=== PATIENT | female | born 1940 | race Caucasian/White ===

== ENCOUNTER 2019-05-13 20:39 | Inpatient (IN) | payer BC, MEDICARE ==
[~2019-05-13] VITALS: Ht 154.9 cm; Wt 52.2 kg
[2019-05-13 20:00] VITALS: BP 121/39
[2019-05-13 20:39] VITALS: BP 121/49
[2019-05-13] MEDS ORDERED: NON FORMULARY PATIENT HOME MED XX SCH (23:00)
[2019-05-13] MEDS ORDERED: VANCOMYCIN HCL 1000 MG/20 ML ORAL PO SCH (23:00)
[2019-05-14] MEDS: VANCOMYCIN HCL 1 GM/VIAL PO SCH ×3 (01:45→17:17)
[2019-05-14] MEDS ORDERED: PANTOPRAZOLE 40MG DR TABLET PO SCH (07:00)
[2019-05-14] MEDS ORDERED: MIDODRINE HCL 5MG TABLET PO SCH (07:00)
[2019-05-14 08:00] VITALS: BP 135/33
[2019-05-14] MEDS: FOLIC ACID/VITAMIN B COMP W-C TABLET PO SCH (08:49)
[2019-05-14] MEDS: LABETALOL HCL 100MG TABLET PO SCH ×2 (08:49→21:00)
[2019-05-14] MEDS: HYDROCORTISONE 2.5% CREAM 20GM TOP SCH ×2 (08:49→17:22)
[2019-05-14] MEDS: LEVETIRACETAM 250MG TABLET PO SCH (08:49)
[2019-05-14] MEDS: LACTOBACILLUS GG CAPSULE PO SCH (08:49)
[2019-05-14] MEDS: CALCIUM ACETATE 667MG CAPSULE PO SCH ×3 (08:49→17:16)
[2019-05-14] MEDS: MECLIZINE 25MG TABLET PO PRN (08:50)
[2019-05-14] MEDS ORDERED: CALCIUM CARBONATE 1,250 MG/5 ML UDC PO SCH (09:00)
[2019-05-14] MEDS ORDERED: ZINC SULFATE 220 MG ( 50 ) CAPSULE PO SCH (09:00)
[2019-05-14 12:52] LABS: BASOPHILS % 0.9 % (0.0-2.0); EOSINOPHILS % 11.5 % (0.0-5.0); HEMATOCRIT. 35.6 % (36.0-48.0); HEMOGLOBIN. 11.4 g/dL (12.0-16.0); LYMPHOCYTES % 17.4 % (20.0-50.0); MEAN CORPUSCULAR HEMOGLOBIN 30.1 pg (28.0-32.0); MEAN CORPUSCULAR VOLUME 93.8 fL (81.0-99.0); MEAN PLATELET VOLUME 8.3 fl (7.4-10.4); MONOCYTES % 9.3 % (2.0-8.0); NEUTROPHILS % 60.9 % (40.0-76.0); PLATELET 98 x1000/uL (130-400); RED BLOOD CELL COUNT 3.79 mill/uL (4.2-5.4); RED CELL DISTRIBUTION WIDTH 22.1 % (11.6-14.6)
[2019-05-14 13:08] LABS: CHLORIDE 107 mEq/L (98-107)
[2019-05-14 13:19] LABS: PHOSPHORUS 3.2 mg/dL (2.5-4.9)
[2019-05-14 15:07] LABS: PLATELET ESTIMATE DECREASED
[2019-05-14] MEDS ORDERED: HYDROCODONE/ACETAMINOPHEN 5/325MG TABLET PO PRN (16:00)
[2019-05-14] MEDS: NYSTATIN POWDER 15GM TOP SCH (17:00)
[2019-05-14 20:00] VITALS: BP 118/34
[2019-05-14] MEDS ORDERED: AMLODIPINE 2.5MG TABLET PO SCH (21:00)
[2019-05-14] MEDS ORDERED: EPOETIN ALFA 10000UNITS/ML VIAL SUBCUT SCH (21:00)
[2019-05-14 23:00] VITALS: BP 106/68
[2019-05-15] MEDS: ATORVASTATIN CALCIUM 10MG TABLET PO SCH ×2 (00:31→21:56)
[2019-05-15] MEDS: VANCOMYCIN HCL 1 GM/VIAL PO SCH ×4 (00:31→17:02)
[2019-05-15] MEDS: FAMOTIDINE 20MG TABLET PO SCH ×2 (00:31→21:56)
[2019-05-15] MEDS: LEVETIRACETAM 250MG TABLET PO SCH ×3 (00:32→21:56)
[2019-05-15 08:00] VITALS: BP 114/32
[2019-05-15] MEDS: LACTOBACILLUS GG CAPSULE PO SCH (08:32)
[2019-05-15] MEDS: FOLIC ACID/VITAMIN B COMP W-C TABLET PO SCH (08:32)
[2019-05-15] MEDS: NYSTATIN POWDER 15GM TOP SCH ×3 (08:33→17:03)
[2019-05-15] MEDS: HYDROCORTISONE 2.5% CREAM 20GM TOP SCH (08:33)
[2019-05-15] MEDS: VANCOMYCIN HCL 1000 MG/20 ML ORAL PO SCH (17:03)
[2019-05-15 20:00] VITALS: BP 135/48
[2019-05-15] MEDS ORDERED: IOHEXOL-350 100 ML BOTTLE ONE (23:32)
[2019-05-16] MEDS: VANCOMYCIN HCL 1000 MG/20 ML ORAL PO SCH ×3 (00:21→14:12)
[2019-05-16 06:38] LABS: BASOPHILS % 1.3 % (0.0-2.0); EOSINOPHILS % 17.5 % (0.0-5.0); HEMATOCRIT. 35.7 % (36.0-48.0); HEMOGLOBIN. 11.5 g/dL (12.0-16.0); LYMPHOCYTES % 20.8 % (20.0-50.0); MEAN CORPUSCULAR HEMOGLOBIN 30.5 pg (28.0-32.0); MEAN PLATELET VOLUME 8.6 fl (7.4-10.4); MONOCYTES % 12.6 % (2.0-8.0); NEUTROPHILS % 47.8 % (40.0-76.0); PLATELET 108 x1000/uL (130-400); RED BLOOD CELL COUNT 3.76 mill/uL (4.2-5.4); RED CELL DISTRIBUTION WIDTH 21.5 % (11.6-14.6)
[2019-05-16 06:57] LABS: CHLORIDE 109 mEq/L (98-107)
[2019-05-16 07:15] LABS: FERRITIN 213 ng/mL (10-291)
[2019-05-16 07:17] LABS: FOLIC ACID (FOLATE) SERUM >20 ng/mL ng/mL (>5.38)
[2019-05-16 07:24] LABS: CREATINE KINASE 29 IU/L (26-192)
[2019-05-16 07:26] LABS: PHOSPHORUS 2.8 mg/dL (2.5-4.9); TOTAL IRON BINDING CAPACITY 265 ug/dL (250-450)
[2019-05-16 07:29] LABS: VITAMIN B12 SERUM 1803 pg/mL (211-911)
[2019-05-16 08:13] VITALS: BP 140/52
[2019-05-16] MEDS: FOLIC ACID/VITAMIN B COMP W-C TABLET PO SCH (11:20)
[2019-05-16] MEDS: LACTOBACILLUS GG CAPSULE PO SCH (11:20)
[2019-05-16] MEDS: LEVOTHYROXINE SODIUM 25MCG TABLET PO SCH (11:20)
[2019-05-16] MEDS: POLYETHYLENE GLYCOL 3350 (17GM) 1 DOSE PACK PO SCH (11:20)
[2019-05-16] MEDS: LEVETIRACETAM 250MG TABLET PO SCH ×2 (11:20→20:37)
[2019-05-16] MEDS: NYSTATIN POWDER 15GM TOP SCH ×3 (11:29→17:40)
[2019-05-16 20:00] VITALS: BP 122/33
[2019-05-16] MEDS: ATORVASTATIN CALCIUM 10MG TABLET PO SCH (20:37)
[2019-05-16] MEDS: FAMOTIDINE 20MG TABLET PO SCH (20:38)
[2019-05-16] MEDS ORDERED: LABETALOL HCL 100MG TABLET PO SCH (21:00)
[2019-05-16] MEDS ORDERED: AMLODIPINE 2.5MG TABLET PO SCH (21:00)
[2019-05-17] MEDS: VANCOMYCIN HCL 1000 MG/20 ML ORAL PO SCH ×4 (00:17→22:11)
[2019-05-17 01:27] VITALS: BP 154/55
[2019-05-17] MEDS: LEVOTHYROXINE SODIUM 25MCG TABLET PO SCH (06:03)
[2019-05-17 08:04] VITALS: BP 121/58
[2019-05-17] MEDS: LACTOBACILLUS GG CAPSULE PO SCH (08:56)
[2019-05-17] MEDS: LEVETIRACETAM 250MG TABLET PO SCH ×2 (08:56→21:35)
[2019-05-17] MEDS: POLYETHYLENE GLYCOL 3350 (17GM) 1 DOSE PACK PO SCH (08:56)
[2019-05-17] MEDS: CARVEDILOL 3.125 MG TABLET PO SCH ×2 (08:57→21:35)
[2019-05-17] MEDS: NYSTATIN POWDER 15GM TOP SCH ×3 (08:57→16:14)
[2019-05-17] MEDS: FOLIC ACID/VITAMIN B COMP W-C TABLET PO SCH (08:57)
[2019-05-17 20:00] VITALS: BP 145/43
[2019-05-17] MEDS: FAMOTIDINE 20MG TABLET PO SCH (21:35)
[2019-05-17] MEDS: ATORVASTATIN CALCIUM 10MG TABLET PO SCH (21:35)
[2019-05-18] MEDS: LEVOTHYROXINE SODIUM 25MCG TABLET PO SCH (06:35)
[2019-05-18] MEDS: VANCOMYCIN HCL 1000 MG/20 ML ORAL PO SCH ×2 (06:35→14:24)
[2019-05-18] MEDS: NYSTATIN POWDER 15GM TOP SCH ×3 (09:00→17:45)
[2019-05-18] MEDS: LACTOBACILLUS GG CAPSULE PO SCH (10:01)
[2019-05-18] MEDS: CARVEDILOL 3.125 MG TABLET PO SCH ×2 (10:01→21:00)
[2019-05-18] MEDS: FOLIC ACID/VITAMIN B COMP W-C TABLET PO SCH (10:02)
[2019-05-18] MEDS: LEVETIRACETAM 250MG TABLET PO SCH (10:02)
[2019-05-18 10:36] LABS: PHOSPHORUS 2.9 mg/dL (2.5-4.9)
[2019-05-18 13:25] LABS: HEMATOCRIT. 36.7 % (36.0-48.0); HEMOGLOBIN. 11.5 g/dL (12.0-16.0); MEAN CORPUSCULAR HEMOGLOBIN 30.4 pg (28.0-32.0); MEAN CORPUSCULAR VOLUME 96.5 fL (81.0-99.0); MEAN PLATELET VOLUME 8.9 fl (7.4-10.4); PLATELET 107 x1000/uL (130-400); RED CELL DISTRIBUTION WIDTH 22.6 % (11.6-14.6)
[2019-05-18 14:34] LABS: PLATELET ESTIMATE DECREASED
[2019-05-18 20:00] VITALS: BP 160/44
[2019-05-19] MEDS: ATORVASTATIN CALCIUM 10MG TABLET PO SCH ×2 (01:08→22:30)
[2019-05-19] MEDS: FAMOTIDINE 20MG TABLET PO SCH ×2 (01:08→22:28)
[2019-05-19] MEDS: LEVETIRACETAM 250MG TABLET PO SCH ×3 (01:08→22:29)
[2019-05-19] MEDS: VANCOMYCIN HCL 1000 MG/20 ML ORAL PO SCH ×4 (01:10→22:28)
[2019-05-19] MEDS: LEVOTHYROXINE SODIUM 25MCG TABLET PO SCH (06:10)
[2019-05-19 08:00] VITALS: BP 142/50
[2019-05-19] MEDS: NYSTATIN POWDER 15GM TOP SCH ×3 (09:22→16:44)
[2019-05-19] MEDS: FOLIC ACID/VITAMIN B COMP W-C TABLET PO SCH (09:22)
[2019-05-19] MEDS: CARVEDILOL 3.125 MG TABLET PO SCH ×2 (09:22→22:29)
[2019-05-19] MEDS: LACTOBACILLUS GG CAPSULE PO SCH (09:22)
[2019-05-19 20:00] VITALS: BP 145/37
[2019-05-20 04:09] LABS: 25-HYDROXY VITAMIN D3 19 ng/mL (.)
[2019-05-20] MEDS: VANCOMYCIN HCL 1000 MG/20 ML ORAL PO SCH ×3 (06:04→22:01)
[2019-05-20] MEDS: LEVOTHYROXINE SODIUM 25MCG TABLET PO SCH (06:04)
[2019-05-20 07:39] LABS: BASOPHILS % 0.8 % (0.0-2.0); EOSINOPHILS % 14.7 % (0.0-5.0); HEMATOCRIT. 31.3 % (36.0-48.0); HEMOGLOBIN. 10.2 g/dL (12.0-16.0); LYMPHOCYTES % 24.4 % (20.0-50.0); MEAN CORPUSCULAR HEMOGLOBIN 30.3 pg (28.0-32.0); MEAN CORPUSCULAR VOLUME 92.5 fL (81.0-99.0); MEAN PLATELET VOLUME 8.6 fl (7.4-10.4); MONOCYTES % 8.8 % (2.0-8.0); NEUTROPHILS % 51.3 % (40.0-76.0); PLATELET 104 x1000/uL (130-400); RED BLOOD CELL COUNT 3.39 mill/uL (4.2-5.4); RED CELL DISTRIBUTION WIDTH 20.9 % (11.6-14.6)
[2019-05-20 07:53] LABS: PHOSPHORUS 2.6 mg/dL (2.5-4.9)
[2019-05-20 08:15] VITALS: BP 141/43
[2019-05-20] MEDS: FOLIC ACID/VITAMIN B COMP W-C TABLET PO SCH (08:47)
[2019-05-20] MEDS: LEVETIRACETAM 250MG TABLET PO SCH ×2 (08:47→21:55)
[2019-05-20] MEDS: LACTOBACILLUS GG CAPSULE PO SCH (08:47)
[2019-05-20] MEDS: CARVEDILOL 6.25 MG TABLET PO SCH ×2 (09:08→21:56)
[2019-05-20] MEDS: NYSTATIN POWDER 15GM TOP SCH ×3 (09:09→16:06)
[2019-05-20] MEDS ORDERED: IRON SUCROSE COMPLEX 200 MG in SODIUM CHLORIDE 0.9% 100 ML IV SCH (10:00)
[2019-05-20] MEDS: ACETAMINOPHEN 325MG TABLET PO PRN (10:08)
[2019-05-20 20:00] VITALS: BP 130/30
[2019-05-20] MEDS: IRON SUCROSE COMPLEX 200 MG in SODIUM CHLORIDE 0.9% 100 ML IV SCH (21:55)
[2019-05-20] MEDS: ATORVASTATIN CALCIUM 10MG TABLET PO SCH (21:56)
[2019-05-20] MEDS: FAMOTIDINE 20MG TABLET PO SCH (22:01)
[2019-05-21] MEDS: LEVOTHYROXINE SODIUM 25MCG TABLET PO SCH (06:21)
[2019-05-21 06:46] LABS: BASOPHILS % 0.5 % (0.0-2.0); EOSINOPHILS % 11.3 % (0.0-5.0); HEMATOCRIT. 34.7 % (36.0-48.0); HEMOGLOBIN. 11.2 g/dL (12.0-16.0); LYMPHOCYTES % 15.2 % (20.0-50.0); MEAN CORPUSCULAR HEMOGLOBIN 30.1 pg (28.0-32.0); MEAN CORPUSCULAR VOLUME 93.6 fL (81.0-99.0); MEAN PLATELET VOLUME 8.6 fl (7.4-10.4); MONOCYTES % 6.9 % (2.0-8.0); NEUTROPHILS % 66.1 % (40.0-76.0); PLATELET 120 x1000/uL (130-400); RED BLOOD CELL COUNT 3.71 mill/uL (4.2-5.4); RED CELL DISTRIBUTION WIDTH 21.5 % (11.6-14.6)
[2019-05-21 07:35] LABS: CHLORIDE 104 mEq/L (98-107)
[2019-05-21 07:49] LABS: PHOSPHORUS 3.3 mg/dL (2.5-4.9)
[2019-05-21 08:00] VITALS: BP 159/43
[2019-05-21] MEDS: ERGOCALCIFEROL 50000UNITS CAPSULE PO SCH (09:54)
[2019-05-21] MEDS: FOLIC ACID/VITAMIN B COMP W-C TABLET PO SCH (09:54)
[2019-05-21] MEDS: CARVEDILOL 6.25 MG TABLET PO SCH ×2 (09:54→21:00)
[2019-05-21] MEDS: LACTOBACILLUS GG CAPSULE PO SCH (09:55)
[2019-05-21] MEDS: LEVETIRACETAM 250MG TABLET PO SCH ×2 (09:55→22:30)
[2019-05-21] MEDS: NYSTATIN POWDER 15GM TOP SCH ×3 (09:55→17:04)
[2019-05-21] MEDS: VANCOMYCIN HCL 1000 MG/20 ML ORAL PO SCH ×2 (09:58→22:31)
[2019-05-21 20:00] VITALS: BP 135/32
[2019-05-21] MEDS: IRON SUCROSE COMPLEX 200 MG in SODIUM CHLORIDE 0.9% 100 ML IV SCH (22:30)
[2019-05-21] MEDS: ATORVASTATIN CALCIUM 10MG TABLET PO SCH (22:30)
[2019-05-21] MEDS: FAMOTIDINE 20MG TABLET PO SCH (22:30)
[2019-05-22] VITALS: BP 120/60
[2019-05-22] MEDS: LEVOTHYROXINE SODIUM 25MCG TABLET PO SCH (06:05)
[2019-05-22 07:51] VITALS: BP 106/37
[2019-05-22] MEDS: VANCOMYCIN HCL 1000 MG/20 ML ORAL PO SCH ×2 (08:44→22:04)
[2019-05-22] MEDS: NYSTATIN POWDER 15GM TOP SCH ×3 (08:44→22:05)
[2019-05-22] MEDS: LACTOBACILLUS GG CAPSULE PO SCH (08:44)
[2019-05-22] MEDS: FOLIC ACID/VITAMIN B COMP W-C TABLET PO SCH (08:44)
[2019-05-22] MEDS: LEVETIRACETAM 250MG TABLET PO SCH ×2 (08:44→22:03)
[2019-05-22] MEDS: CARVEDILOL 3.125 MG TABLET PO SCH ×2 (08:44→22:03)
[2019-05-22 20:00] VITALS: BP 127/64
[2019-05-22] MEDS: FAMOTIDINE 20MG TABLET PO SCH (22:03)
[2019-05-22] MEDS: ATORVASTATIN CALCIUM 10MG TABLET PO SCH (22:04)
[2019-05-22] MEDS: IRON SUCROSE COMPLEX 200 MG in SODIUM CHLORIDE 0.9% 100 ML IV SCH (22:05)
[2019-05-23] MEDS: LEVOTHYROXINE SODIUM 25MCG TABLET PO SCH (06:49)
[2019-05-23 07:11] LABS: BASOPHILS % 0.9 % (0.0-2.0); EOSINOPHILS % 9.5 % (0.0-5.0); HEMATOCRIT. 35.8 % (36.0-48.0); HEMOGLOBIN. 11.4 g/dL (12.0-16.0); LYMPHOCYTES % 24.2 % (20.0-50.0); MEAN CORPUSCULAR HEMOGLOBIN 30.2 pg (28.0-32.0); MEAN CORPUSCULAR VOLUME 94.9 fL (81.0-99.0); MEAN PLATELET VOLUME 8.6 fl (7.4-10.4); MONOCYTES % 9.3 % (2.0-8.0); NEUTROPHILS % 56.1 % (40.0-76.0); PLATELET 122 x1000/uL (130-400); RED BLOOD CELL COUNT 3.78 mill/uL (4.2-5.4); RED CELL DISTRIBUTION WIDTH 21.7 % (11.6-14.6)
[2019-05-23 07:51] LABS: PHOSPHORUS 3.9 mg/dL (2.5-4.9)
[2019-05-23 08:00] VITALS: BP 139/56
[2019-05-23] MEDS: FOLIC ACID/VITAMIN B COMP W-C TABLET PO SCH (08:33)
[2019-05-23] MEDS: CARVEDILOL 3.125 MG TABLET PO SCH ×2 (08:33→22:22)
[2019-05-23] MEDS: LACTOBACILLUS GG CAPSULE PO SCH (08:33)
[2019-05-23] MEDS: VANCOMYCIN HCL 1000 MG/20 ML ORAL PO SCH ×2 (08:33→22:20)
[2019-05-23] MEDS: LEVETIRACETAM 250MG TABLET PO SCH ×2 (08:33→22:16)
[2019-05-23] MEDS: NYSTATIN POWDER 15GM TOP SCH ×3 (08:45→17:22)
[2019-05-23] MEDS ORDERED: LACTOBACILLUS GG CAPSULE PO SCH (09:00)
[2019-05-23] MEDS ORDERED: LOPERAMIDE HCL 2MG CAPSULE PO PRN (09:15)
[2019-05-23] MEDS ORDERED: SODIUM BICARBONATE 4% (2.4MEQ) 5ML VIAL IV ONE (14:26)
[2019-05-23] MEDS ORDERED: LIDOCAINE HCL 1% 20ML VIAL (Pyxis) INJ ONE (14:26)
[2019-05-23 20:00] VITALS: BP_SYST 127; BP_SYST 131; BP_DIAS 24; BP_DIAS 43
[2019-05-23] MEDS: ATORVASTATIN CALCIUM 10MG TABLET PO SCH (22:16)
[2019-05-23] MEDS: MIRTAZAPINE 15MG TABLET PO SCH (22:17)
[2019-05-23] MEDS: FAMOTIDINE 20MG TABLET PO SCH (22:22)
[2019-05-24] MEDS: LEVOTHYROXINE SODIUM 25MCG TABLET PO SCH (07:05)
[2019-05-24 08:00] VITALS: BP 139/58
[2019-05-24] MEDS: NYSTATIN POWDER 15GM TOP SCH ×3 (10:11→17:50)
[2019-05-24] MEDS: LEVETIRACETAM 250MG TABLET PO SCH ×2 (10:14→21:42)
[2019-05-24] MEDS: FOLIC ACID/VITAMIN B COMP W-C TABLET PO SCH (10:15)
[2019-05-24] MEDS: CARVEDILOL 3.125 MG TABLET PO SCH ×2 (10:15→21:42)
[2019-05-24] MEDS: LACTOBACILLUS GG CAPSULE PO SCH (10:15)
[2019-05-24] MEDS: VANCOMYCIN HCL 1000 MG/20 ML ORAL PO SCH ×2 (10:15→21:42)
[2019-05-24 20:00] VITALS: BP 175/43
[2019-05-24] MEDS: ATORVASTATIN CALCIUM 10MG TABLET PO SCH (21:43)
[2019-05-24] MEDS: FAMOTIDINE 20MG TABLET PO SCH (21:43)
[2019-05-24] MEDS: MIRTAZAPINE 15MG TABLET PO SCH (21:43)
[2019-05-25] MEDS: LEVOTHYROXINE SODIUM 25MCG TABLET PO SCH (06:48)
[2019-05-25 07:50] LABS: BASOPHILS % 1.2 % (0.0-2.0); HEMATOCRIT. 35.6 % (36.0-48.0); HEMOGLOBIN. 11.5 g/dL (12.0-16.0); LYMPHOCYTES % 18.7 % (20.0-50.0); MEAN CORPUSCULAR HEMOGLOBIN 30.5 pg (28.0-32.0); MEAN CORPUSCULAR VOLUME 94.6 fL (81.0-99.0); MEAN PLATELET VOLUME 8.7 fl (7.4-10.4); MONOCYTES % 10.7 % (2.0-8.0); NEUTROPHILS % 56.4 % (40.0-76.0); PLATELET 112 x1000/uL (130-400); RED BLOOD CELL COUNT 3.76 mill/uL (4.2-5.4); RED CELL DISTRIBUTION WIDTH 21.6 % (11.6-14.6)
[2019-05-25 08:00] VITALS: BP 158/48
[2019-05-25] MEDS: FOLIC ACID/VITAMIN B COMP W-C TABLET PO SCH (09:31)
[2019-05-25] MEDS: CARVEDILOL 3.125 MG TABLET PO SCH ×2 (09:31→21:00)
[2019-05-25] MEDS: LEVETIRACETAM 250MG TABLET PO SCH (09:31)
[2019-05-25] MEDS: LACTOBACILLUS GG CAPSULE PO SCH (09:31)
[2019-05-25] MEDS: NYSTATIN POWDER 15GM TOP SCH ×3 (09:32→16:24)
[2019-05-25] MEDS: VANCOMYCIN HCL 1000 MG/20 ML ORAL PO SCH (09:35)
[2019-05-25 20:00] VITALS: BP 122/42
[2019-05-26] MEDS: ATORVASTATIN CALCIUM 10MG TABLET PO SCH ×2 (00:10→21:13)
[2019-05-26] MEDS: VANCOMYCIN HCL 1000 MG/20 ML ORAL PO SCH ×2 (00:10→09:28)
[2019-05-26] MEDS: MIRTAZAPINE 15MG TABLET PO SCH ×2 (00:10→21:13)
[2019-05-26] MEDS: LEVETIRACETAM 250MG TABLET PO SCH ×3 (00:10→21:13)
[2019-05-26] MEDS: FAMOTIDINE 20MG TABLET PO SCH ×2 (00:10→21:13)
[2019-05-26] MEDS: LEVOTHYROXINE SODIUM 25MCG TABLET PO SCH (06:19)
[2019-05-26 07:50] VITALS: BP 128/46
[2019-05-26 08:30] LABS: BASOPHILS % 1.2 % (0.0-2.0); EOSINOPHILS % 10.6 % (0.0-5.0); HEMATOCRIT. 35.3 % (36.0-48.0); HEMOGLOBIN. 11.6 g/dL (12.0-16.0); LYMPHOCYTES % 25.4 % (20.0-50.0); MEAN CORPUSCULAR HEMOGLOBIN 30.5 pg (28.0-32.0); MEAN PLATELET VOLUME 8.5 fl (7.4-10.4); MONOCYTES % 9.5 % (2.0-8.0); NEUTROPHILS % 53.3 % (40.0-76.0); PLATELET 126 x1000/uL (130-400); RED CELL DISTRIBUTION WIDTH 21.2 % (11.6-14.6)
[2019-05-26 09:13] LABS: PHOSPHORUS 2.3 mg/dL (2.5-4.9)
[2019-05-26] MEDS: CARVEDILOL 3.125 MG TABLET PO SCH ×2 (09:24→21:13)
[2019-05-26] MEDS: FOLIC ACID/VITAMIN B COMP W-C TABLET PO SCH (09:24)
[2019-05-26] MEDS: NYSTATIN POWDER 15GM TOP SCH ×3 (09:24→16:01)
[2019-05-26] MEDS: LACTOBACILLUS GG CAPSULE PO SCH (09:24)
[2019-05-26] MEDS: POTASSIUM-SODIUM PHOSPHATE POWDER PACKET PO SCH (16:01)
[2019-05-26 20:00] VITALS: BP 144/48
[2019-05-26 22:00] VITALS: BP 144/48
[2019-05-27] VITALS: BP 144/48
[2019-05-27] MEDS: LEVOTHYROXINE SODIUM 25MCG TABLET PO SCH (06:28)
[2019-05-27 07:40] LABS: BASOPHILS % 1.1 % (0.0-2.0); EOSINOPHILS % 10.9 % (0.0-5.0); HEMATOCRIT. 29.7 % (36.0-48.0); HEMOGLOBIN. 9.5 g/dL (12.0-16.0); LYMPHOCYTES % 25.8 % (20.0-50.0); MEAN CORPUSCULAR HEMOGLOBIN 30.3 pg (28.0-32.0); MEAN CORPUSCULAR VOLUME 94.5 fL (81.0-99.0); MEAN PLATELET VOLUME 8.5 fl (7.4-10.4); MONOCYTES % 12.3 % (2.0-8.0); NEUTROPHILS % 49.9 % (40.0-76.0); PLATELET 123 x1000/uL (130-400); RED BLOOD CELL COUNT 3.14 mill/uL (4.2-5.4); RED CELL DISTRIBUTION WIDTH 21.9 % (11.6-14.6)
[2019-05-27] MEDS: LEVETIRACETAM 250MG TABLET PO SCH ×2 (08:05→21:01)
[2019-05-27] MEDS: LACTOBACILLUS GG CAPSULE PO SCH (08:05)
[2019-05-27] MEDS: NYSTATIN POWDER 15GM TOP SCH ×3 (08:05→16:21)
[2019-05-27] MEDS: FOLIC ACID/VITAMIN B COMP W-C TABLET PO SCH (08:05)
[2019-05-27] MEDS: VANCOMYCIN HCL 1000 MG/20 ML ORAL PO SCH (08:06)
[2019-05-27] MEDS: CARVEDILOL 3.125 MG TABLET PO SCH ×2 (08:06→21:02)
[2019-05-27 08:12] VITALS: BP 143/44
[2019-05-27 08:25] LABS: PHOSPHORUS 3.7 mg/dL (2.5-4.9)
[2019-05-27] MEDS: POTASSIUM-SODIUM PHOSPHATE POWDER PACKET PO SCH ×2 (08:42→16:24)
[2019-05-27 20:00] VITALS: BP 157/73
[2019-05-27] MEDS: FAMOTIDINE 20MG TABLET PO SCH (21:01)
[2019-05-27] MEDS: MIRTAZAPINE 15MG TABLET PO SCH (21:02)
[2019-05-27] MEDS: ATORVASTATIN CALCIUM 10MG TABLET PO SCH (21:02)
[2019-05-27] MEDS: ACETAMINOPHEN 325MG TABLET PO PRN (21:03)
[2019-05-28] MEDS: LEVOTHYROXINE SODIUM 25MCG TABLET PO SCH (05:54)
[2019-05-28 07:58] LABS: BASOPHILS % 1.2 % (0.0-2.0); EOSINOPHILS % 13.9 % (0.0-5.0); HEMOGLOBIN. 10.4 g/dL (12.0-16.0); LYMPHOCYTES % 22.8 % (20.0-50.0); MEAN CORPUSCULAR HEMOGLOBIN 30.2 pg (28.0-32.0); MEAN CORPUSCULAR VOLUME 95.8 fL (81.0-99.0); MEAN PLATELET VOLUME 8.6 fl (7.4-10.4); MONOCYTES % 11.4 % (2.0-8.0); NEUTROPHILS % 50.7 % (40.0-76.0); PLATELET 123 x1000/uL (130-400); RED BLOOD CELL COUNT 3.44 mill/uL (4.2-5.4); RED CELL DISTRIBUTION WIDTH 21.8 % (11.6-14.6)
[2019-05-28 08:03] VITALS: BP 149/39
[2019-05-28 08:20] LABS: PHOSPHORUS 4.8 mg/dL (2.5-4.9)
[2019-05-28] MEDS: NYSTATIN POWDER 15GM TOP SCH ×3 (09:16→16:35)
[2019-05-28] MEDS: VANCOMYCIN HCL 1000 MG/20 ML ORAL PO SCH (09:17)
[2019-05-28] MEDS: LACTOBACILLUS GG CAPSULE PO SCH (09:17)
[2019-05-28] MEDS: LEVETIRACETAM 250MG TABLET PO SCH (09:17)
[2019-05-28] MEDS: CARVEDILOL 3.125 MG TABLET PO SCH (09:17)
[2019-05-28] MEDS: POTASSIUM-SODIUM PHOSPHATE POWDER PACKET PO SCH ×2 (09:17→16:35)
[2019-05-28] MEDS: ERGOCALCIFEROL 50000UNITS CAPSULE PO SCH (09:17)
[2019-05-28] MEDS: FOLIC ACID/VITAMIN B COMP W-C TABLET PO SCH (09:17)
[2019-05-28] MEDS ORDERED: CALCIUM ACETATE 667MG CAPSULE PO SCH (17:00)
[2019-05-28 20:00] VITALS: BP 122/69
[2019-05-29] MEDS: FAMOTIDINE 20MG TABLET PO SCH ×2 (03:40→21:36)
[2019-05-29] MEDS: ATORVASTATIN CALCIUM 10MG TABLET PO SCH ×2 (03:40→21:36)
[2019-05-29] MEDS: MIRTAZAPINE 15MG TABLET PO SCH ×2 (03:40→21:36)
[2019-05-29] MEDS: LEVETIRACETAM 250MG TABLET PO SCH ×3 (03:40→21:36)
[2019-05-29] MEDS: CARVEDILOL 3.125 MG TABLET PO SCH ×3 (03:41→21:38)
[2019-05-29] MEDS: LEVOTHYROXINE SODIUM 25MCG TABLET PO SCH (05:58)
[2019-05-29 07:17] LABS: HEMATOCRIT. 33.5 % (36.0-48.0); MEAN CORPUSCULAR HEMOGLOBIN 31.1 pg (28.0-32.0); MEAN CORPUSCULAR VOLUME 94.9 fL (81.0-99.0); MEAN PLATELET VOLUME 8.2 fl (7.4-10.4); PLATELET 124 x1000/uL (130-400); RED BLOOD CELL COUNT 3.53 mill/uL (4.2-5.4); RED CELL DISTRIBUTION WIDTH 21.6 % (11.6-14.6)
[2019-05-29 07:29] LABS: PHOSPHORUS 2.4 mg/dL (2.5-4.9)
[2019-05-29 08:04] VITALS: BP 98/47
[2019-05-29] MEDS: NYSTATIN POWDER 15GM TOP SCH ×3 (09:00→16:23)
[2019-05-29] MEDS: FOLIC ACID/VITAMIN B COMP W-C TABLET PO SCH (09:39)
[2019-05-29] MEDS: LACTOBACILLUS GG CAPSULE PO SCH (09:39)
[2019-05-29] MEDS: POTASSIUM-SODIUM PHOSPHATE POWDER PACKET PO SCH ×2 (09:40→16:23)
[2019-05-29 20:00] VITALS: BP 150/31
[2019-05-30 05:27] LABS: PLATELET ESTIMATE SLIGHTLY DECREASED
[2019-05-30] MEDS: LEVOTHYROXINE SODIUM 25MCG TABLET PO SCH (06:29)
[2019-05-30 07:10] LABS: CHLORIDE 107 mEq/L (98-107)
[2019-05-30 07:17] LABS: BASOPHILS % 1.3 % (0.0-2.0); EOSINOPHILS % 13.5 % (0.0-5.0); HEMATOCRIT. 28.6 % (36.0-48.0); HEMOGLOBIN. 9.2 g/dL (12.0-16.0); MEAN CORPUSCULAR HEMOGLOBIN 30.9 pg (28.0-32.0); MEAN CORPUSCULAR VOLUME 95.6 fL (81.0-99.0); MEAN PLATELET VOLUME 8.3 fl (7.4-10.4); MONOCYTES % 14.9 % (2.0-8.0); NEUTROPHILS % 46.3 % (40.0-76.0); PLATELET 122 x1000/uL (130-400); RED BLOOD CELL COUNT 2.99 mill/uL (4.2-5.4); RED CELL DISTRIBUTION WIDTH 21.9 % (11.6-14.6)
[2019-05-30 07:23] LABS: PHOSPHORUS 4.1 mg/dL (2.5-4.9)
[2019-05-30 08:00] VITALS: BP 159/57
[2019-05-30] MEDS: POTASSIUM-SODIUM PHOSPHATE POWDER PACKET PO SCH ×2 (08:51→16:23)
[2019-05-30] MEDS: LACTOBACILLUS GG CAPSULE PO SCH (08:51)
[2019-05-30] MEDS: FOLIC ACID/VITAMIN B COMP W-C TABLET PO SCH (08:51)
[2019-05-30] MEDS: LEVETIRACETAM 250MG TABLET PO SCH (08:52)
[2019-05-30] MEDS: NYSTATIN POWDER 15GM TOP SCH ×3 (08:52→16:23)
[2019-05-30] MEDS: CARVEDILOL 3.125 MG TABLET PO SCH ×2 (08:52→21:00)
[2019-05-30 20:00] VITALS: BP 144/35
[2019-05-31] MEDS: EPOETIN ALFA 4000UNITS/ML VIAL SUBCUT SCH (02:15)
[2019-05-31] MEDS: MIRTAZAPINE 15MG TABLET PO SCH ×2 (02:15→21:26)
[2019-05-31] MEDS: ATORVASTATIN CALCIUM 10MG TABLET PO SCH ×2 (02:15→21:26)
[2019-05-31] MEDS: LEVETIRACETAM 250MG TABLET PO SCH ×3 (02:16→21:26)
[2019-05-31] MEDS: FAMOTIDINE 20MG TABLET PO SCH ×2 (02:16→21:26)
[2019-05-31] MEDS: LEVOTHYROXINE SODIUM 25MCG TABLET PO SCH (06:17)
[2019-05-31 08:00] VITALS: BP 124/49
[2019-05-31] MEDS: POTASSIUM-SODIUM PHOSPHATE POWDER PACKET PO SCH ×2 (08:46→16:28)
[2019-05-31] MEDS: LACTOBACILLUS GG CAPSULE PO SCH (08:46)
[2019-05-31] MEDS: FOLIC ACID/VITAMIN B COMP W-C TABLET PO SCH (08:47)
[2019-05-31] MEDS: CARVEDILOL 3.125 MG TABLET PO SCH ×2 (08:50→21:00)
[2019-05-31] MEDS: NYSTATIN POWDER 15GM TOP SCH ×3 (08:50→16:28)
[2019-05-31] MEDS: ACETAMINOPHEN 325MG TABLET PO PRN (09:38)
[2019-05-31 18:58] LABS: PHOSPHORUS 3.6 mg/dL (2.5-4.9)
[2019-05-31 20:00] VITALS: BP 108/40
[2019-05-31 21:31] LABS: HEMATOCRIT. 31.6 % (36.0-48.0); HEMOGLOBIN. 10.2 g/dL (12.0-16.0); MEAN CORPUSCULAR HEMOGLOBIN 31.2 pg (28.0-32.0); MEAN CORPUSCULAR VOLUME 96.3 fL (81.0-99.0); MEAN PLATELET VOLUME 8.5 fl (7.4-10.4); PLATELET 112 x1000/uL (130-400); RED BLOOD CELL COUNT 3.28 mill/uL (4.2-5.4); RED CELL DISTRIBUTION WIDTH 22.8 % (11.6-14.6)
[2019-05-31 21:57] LABS: PLATELET ESTIMATE DECREASED
[2019-06-01] MEDS: LEVOTHYROXINE SODIUM 25MCG TABLET PO SCH (06:10)
[2019-06-01 07:29] LABS: HEMATOCRIT. 31.9 % (36.0-48.0); HEMOGLOBIN. 10.3 g/dL (12.0-16.0); MEAN CORPUSCULAR VOLUME 95.7 fL (81.0-99.0); MEAN PLATELET VOLUME 8.1 fl (7.4-10.4); PLATELET 126 x1000/uL (130-400); RED BLOOD CELL COUNT 3.33 mill/uL (4.2-5.4); RED CELL DISTRIBUTION WIDTH 21.9 % (11.6-14.6)
[2019-06-01 07:41] LABS: PHOSPHORUS 4.2 mg/dL (2.5-4.9)
[2019-06-01 08:00] VITALS: BP 153/62
[2019-06-01] MEDS: NYSTATIN POWDER 15GM TOP SCH ×3 (08:38→16:56)
[2019-06-01] MEDS: POTASSIUM-SODIUM PHOSPHATE POWDER PACKET PO SCH ×2 (08:38→16:57)
[2019-06-01] MEDS: LACTOBACILLUS GG CAPSULE PO SCH (08:39)
[2019-06-01] MEDS: LEVETIRACETAM 250MG TABLET PO SCH ×2 (08:39→21:08)
[2019-06-01] MEDS: CARVEDILOL 3.125 MG TABLET PO SCH ×2 (08:39→21:08)
[2019-06-01] MEDS: FOLIC ACID/VITAMIN B COMP W-C TABLET PO SCH (08:39)
[2019-06-01 10:32] LABS: PLATELET ESTIMATE SLIGHTLY DECREASED
[2019-06-01 20:00] VITALS: BP 156/64
[2019-06-01] MEDS: ATORVASTATIN CALCIUM 10MG TABLET PO SCH (21:08)
[2019-06-01] MEDS: MIRTAZAPINE 15MG TABLET PO SCH (21:08)
[2019-06-01] MEDS: FAMOTIDINE 20MG TABLET PO SCH (21:08)
[2019-06-02] MEDS: LEVOTHYROXINE SODIUM 25MCG TABLET PO SCH (06:01)
[2019-06-02 08:00] VITALS: BP 111/36
[2019-06-02 08:06] LABS: HEMATOCRIT. 30.1 % (36.0-48.0); HEMOGLOBIN. 9.8 g/dL (12.0-16.0); LYMPHOCYTES % 22.3 % (20.0-50.0); MEAN CORPUSCULAR HEMOGLOBIN 31.4 pg (28.0-32.0); MEAN PLATELET VOLUME 8.6 fl (7.4-10.4); MONOCYTES % 14.5 % (2.0-8.0); NEUTROPHILS % 53.2 % (40.0-76.0); PLATELET 141 x1000/uL (130-400); RED BLOOD CELL COUNT 3.11 mill/uL (4.2-5.4)
[2019-06-02 08:25] LABS: PHOSPHORUS 3.1 mg/dL (2.5-4.9)
[2019-06-02] MEDS: POTASSIUM-SODIUM PHOSPHATE POWDER PACKET PO SCH ×2 (08:51→16:33)
[2019-06-02] MEDS: NYSTATIN POWDER 15GM TOP SCH ×3 (08:51→16:33)
[2019-06-02] MEDS: FOLIC ACID/VITAMIN B COMP W-C TABLET PO SCH (08:51)
[2019-06-02] MEDS: LACTOBACILLUS GG CAPSULE PO SCH (08:51)
[2019-06-02] MEDS: CARVEDILOL 3.125 MG TABLET PO SCH ×2 (08:51→22:11)
[2019-06-02] MEDS: LEVETIRACETAM 250MG TABLET PO SCH ×2 (08:51→21:56)
[2019-06-02] MEDS: MECLIZINE 25MG TABLET PO PRN (19:11)
[2019-06-02 20:00] VITALS: BP_SYST 113; BP_SYST 154; BP_DIAS 50; BP_DIAS 73
[2019-06-02] MEDS: ATORVASTATIN CALCIUM 10MG TABLET PO SCH (21:56)
[2019-06-02] MEDS: MIRTAZAPINE 15MG TABLET PO SCH (21:56)
[2019-06-02] MEDS: FAMOTIDINE 20MG TABLET PO SCH (21:57)
[2019-06-03] MEDS: LEVOTHYROXINE SODIUM 25MCG TABLET PO SCH (06:14)
[2019-06-03 06:54] LABS: HEMATOCRIT. 28.9 % (36.0-48.0); HEMOGLOBIN. 9.4 g/dL (12.0-16.0); MEAN CORPUSCULAR HEMOGLOBIN 31.8 pg (28.0-32.0); MEAN CORPUSCULAR VOLUME 98.2 fL (81.0-99.0); MEAN PLATELET VOLUME 8.4 fl (7.4-10.4); PLATELET 136 x1000/uL (130-400); RED BLOOD CELL COUNT 2.94 mill/uL (4.2-5.4); RED CELL DISTRIBUTION WIDTH 22.9 % (11.6-14.6)
[2019-06-03 08:00] VITALS: BP 108/28
[2019-06-03 08:02] LABS: PHOSPHORUS 3.7 mg/dL (2.5-4.9)
[2019-06-03] MEDS: CARVEDILOL 3.125 MG TABLET PO SCH ×2 (09:00→21:00)
[2019-06-03] MEDS: FOLIC ACID/VITAMIN B COMP W-C TABLET PO SCH (09:01)
[2019-06-03] MEDS: LEVETIRACETAM 250MG TABLET PO SCH ×2 (09:01→21:22)
[2019-06-03] MEDS: LACTOBACILLUS GG CAPSULE PO SCH (09:01)
[2019-06-03] MEDS: NYSTATIN POWDER 15GM TOP SCH ×3 (09:10→17:11)
[2019-06-03 13:35] LABS: PLATELET ESTIMATE NORMAL
[2019-06-03 20:00] VITALS: BP 99/57
[2019-06-03] MEDS: FAMOTIDINE 20MG TABLET PO SCH (21:22)
[2019-06-03] MEDS: MIRTAZAPINE 15MG TABLET PO SCH (21:22)
[2019-06-03] MEDS: ATORVASTATIN CALCIUM 10MG TABLET PO SCH (21:22)
[2019-06-04] MEDS: LEVOTHYROXINE SODIUM 25MCG TABLET PO SCH (06:16)
[2019-06-04 07:55] VITALS: BP 139/34
[2019-06-04 08:11] LABS: PHOSPHORUS 4.5 mg/dL (2.5-4.9)
[2019-06-04] MEDS: LEVETIRACETAM 250MG TABLET PO SCH (08:55)
[2019-06-04] MEDS: CARVEDILOL 3.125 MG TABLET PO SCH ×4 (08:55→21:00)
[2019-06-04] MEDS: NYSTATIN POWDER 15GM TOP SCH ×3 (08:55→17:09)
[2019-06-04] MEDS: ERGOCALCIFEROL 50000UNITS CAPSULE PO SCH (08:55)
[2019-06-04] MEDS: FOLIC ACID/VITAMIN B COMP W-C TABLET PO SCH (08:55)
[2019-06-04] MEDS: LACTOBACILLUS GG CAPSULE PO SCH (08:55)
[2019-06-04] MEDS: LOPERAMIDE HCL 2MG CAPSULE PO SCH (09:04)
[2019-06-04 20:00] VITALS: BP 137/35
[2019-06-05] MEDS: MIRTAZAPINE 15MG TABLET PO SCH ×2 (00:57→20:56)
[2019-06-05] MEDS: LEVETIRACETAM 250MG TABLET PO SCH ×3 (00:57→20:55)
[2019-06-05] MEDS: FAMOTIDINE 20MG TABLET PO SCH ×2 (00:57→20:56)
[2019-06-05] MEDS: ATORVASTATIN CALCIUM 10MG TABLET PO SCH ×2 (00:57→20:56)
[2019-06-05] MEDS: EPOETIN ALFA 4000UNITS/ML VIAL SUBCUT SCH (00:58)
[2019-06-05] MEDS: LEVOTHYROXINE SODIUM 25MCG TABLET PO SCH (06:06)
[2019-06-05 07:49] VITALS: BP 141/43
[2019-06-05] MEDS: LACTOBACILLUS GG CAPSULE PO SCH (08:34)
[2019-06-05] MEDS: FOLIC ACID/VITAMIN B COMP W-C TABLET PO SCH (08:34)
[2019-06-05] MEDS: LOPERAMIDE HCL 2MG CAPSULE PO SCH (08:35)
[2019-06-05] MEDS: NYSTATIN POWDER 15GM TOP SCH ×3 (08:35→16:10)
[2019-06-05] MEDS: CARVEDILOL 3.125 MG TABLET PO SCH ×2 (08:36→20:55)
[2019-06-05 20:00] VITALS: BP 125/51
[2019-06-06] MEDS: LEVOTHYROXINE SODIUM 25MCG TABLET PO SCH (06:12)
[2019-06-06 08:06] LABS: HEMATOCRIT. 31.4 % (36.0-48.0); HEMOGLOBIN. 10.3 g/dL (12.0-16.0); MEAN CORPUSCULAR HEMOGLOBIN 32.3 pg (28.0-32.0); MEAN CORPUSCULAR VOLUME 98.1 fL (81.0-99.0); MEAN PLATELET VOLUME 8.7 fl (7.4-10.4); PLATELET 107 x1000/uL (130-400); RED CELL DISTRIBUTION WIDTH 22.6 % (11.6-14.6)
[2019-06-06 08:07] VITALS: BP 126/100
[2019-06-06 08:58] LABS: PHOSPHORUS 5.3 mg/dL (2.5-4.9)
[2019-06-06] MEDS: LEVETIRACETAM 250MG TABLET PO SCH ×2 (09:23→22:17)
[2019-06-06] MEDS: LACTOBACILLUS GG CAPSULE PO SCH (09:23)
[2019-06-06] MEDS: NYSTATIN POWDER 15GM TOP SCH ×3 (09:23→16:01)
[2019-06-06] MEDS: LOPERAMIDE HCL 2MG CAPSULE PO SCH (09:23)
[2019-06-06] MEDS: CARVEDILOL 3.125 MG TABLET PO SCH ×2 (09:23→22:18)
[2019-06-06] MEDS: FOLIC ACID/VITAMIN B COMP W-C TABLET PO SCH (09:23)
[2019-06-06 17:08] LABS: PLATELET ESTIMATE DECREASED
[2019-06-06 20:00] VITALS: BP 104/34
[2019-06-06] MEDS ORDERED: EPOETIN ALFA 4000UNITS/ML VIAL SUBCUT SCH (21:00)
[2019-06-06] MEDS: FAMOTIDINE 20MG TABLET PO SCH (22:17)
[2019-06-06] MEDS: ATORVASTATIN CALCIUM 10MG TABLET PO SCH (22:17)
[2019-06-06] MEDS: MIRTAZAPINE 15MG TABLET PO SCH (22:17)
[2019-06-07] MEDS: LEVOTHYROXINE SODIUM 25MCG TABLET PO SCH (06:14)
[2019-06-07 08:00] VITALS: BP 113/71
[2019-06-07] MEDS: LACTOBACILLUS GG CAPSULE PO SCH (08:39)
[2019-06-07] MEDS: CARVEDILOL 3.125 MG TABLET PO SCH ×2 (08:39→21:26)
[2019-06-07] MEDS: LEVETIRACETAM 250MG TABLET PO SCH ×2 (08:39→21:25)
[2019-06-07] MEDS: FOLIC ACID/VITAMIN B COMP W-C TABLET PO SCH (08:39)
[2019-06-07] MEDS: LOPERAMIDE HCL 2MG CAPSULE PO SCH (08:39)
[2019-06-07] MEDS: NYSTATIN POWDER 15GM TOP SCH ×3 (08:43→16:37)
[2019-06-07 20:00] VITALS: BP 142/47
[2019-06-07] MEDS: FAMOTIDINE 20MG TABLET PO SCH (21:25)
[2019-06-07] MEDS: MIRTAZAPINE 15MG TABLET PO SCH (21:25)
[2019-06-07] MEDS: ATORVASTATIN CALCIUM 10MG TABLET PO SCH (21:25)
[2019-06-08] MEDS: LEVOTHYROXINE SODIUM 25MCG TABLET PO SCH (06:04)
[2019-06-08 07:46] VITALS: BP 129/58
[2019-06-08 08:14] LABS: BASOPHILS % 1.1 % (0.0-2.0); EOSINOPHILS % 9.6 % (0.0-5.0); HEMATOCRIT. 33.7 % (36.0-48.0); LYMPHOCYTES % 30.4 % (20.0-50.0); MEAN CORPUSCULAR HEMOGLOBIN 31.9 pg (28.0-32.0); MEAN CORPUSCULAR VOLUME 97.5 fL (81.0-99.0); MEAN PLATELET VOLUME 8.3 fl (7.4-10.4); MONOCYTES % 13.4 % (2.0-8.0); NEUTROPHILS % 45.5 % (40.0-76.0); PLATELET 123 x1000/uL (130-400); RED BLOOD CELL COUNT 3.46 mill/uL (4.2-5.4); RED CELL DISTRIBUTION WIDTH 23.1 % (11.6-14.6)
[2019-06-08 08:42] LABS: PHOSPHORUS 5.9 mg/dL (2.5-4.9)
[2019-06-08] MEDS: NYSTATIN POWDER 15GM TOP SCH ×3 (08:51→17:30)
[2019-06-08] MEDS: CARVEDILOL 3.125 MG TABLET PO SCH ×2 (08:51→21:00)
[2019-06-08] MEDS: FOLIC ACID/VITAMIN B COMP W-C TABLET PO SCH (08:51)
[2019-06-08] MEDS: LEVETIRACETAM 250MG TABLET PO SCH ×2 (08:51→22:05)
[2019-06-08] MEDS: LOPERAMIDE HCL 2MG CAPSULE PO SCH (08:51)
[2019-06-08] MEDS: LACTOBACILLUS GG CAPSULE PO SCH (08:51)
[2019-06-08 20:00] VITALS: BP 91/26
[2019-06-08] MEDS: MIRTAZAPINE 15MG TABLET PO SCH (22:05)
[2019-06-08] MEDS: FAMOTIDINE 20MG TABLET PO SCH (22:05)
[2019-06-08] MEDS: ATORVASTATIN CALCIUM 10MG TABLET PO SCH (22:05)
[2019-06-09] MEDS: LEVOTHYROXINE SODIUM 25MCG TABLET PO SCH (06:25)
[2019-06-09 08:00] VITALS: BP 128/38
[2019-06-09] MEDS: NYSTATIN POWDER 15GM TOP SCH ×3 (08:33→17:25)
[2019-06-09] MEDS: CARVEDILOL 3.125 MG TABLET PO SCH ×2 (08:33→21:43)
[2019-06-09] MEDS: FOLIC ACID/VITAMIN B COMP W-C TABLET PO SCH (08:33)
[2019-06-09] MEDS: LACTOBACILLUS GG CAPSULE PO SCH (08:33)
[2019-06-09 20:00] VITALS: BP 127/38
[2019-06-09] MEDS: ATORVASTATIN CALCIUM 10MG TABLET PO SCH (21:42)
[2019-06-09] MEDS: FAMOTIDINE 20MG TABLET PO SCH (21:43)
[2019-06-09] MEDS: LEVETIRACETAM 250MG TABLET PO SCH (21:43)
[2019-06-10] VITALS: BP 120/62
[2019-06-10] MEDS: LEVOTHYROXINE SODIUM 25MCG TABLET PO SCH (06:36)
[2019-06-10 08:15] VITALS: BP 111/31
[2019-06-10] MEDS: NYSTATIN POWDER 15GM TOP SCH ×3 (09:00→16:37)
[2019-06-10] MEDS: LACTOBACILLUS GG CAPSULE PO SCH (09:07)
[2019-06-10] MEDS: FLUOXETINE HCL 10 MG CAPSULE PO SCH (09:08)
[2019-06-10] MEDS: CARVEDILOL 3.125 MG TABLET PO SCH ×2 (09:08→22:03)
[2019-06-10] MEDS: FOLIC ACID/VITAMIN B COMP W-C TABLET PO SCH (09:08)
[2019-06-10] MEDS: LOPERAMIDE HCL 2MG CAPSULE PO SCH (14:29)
[2019-06-10 20:00] VITALS: BP 132/49
[2019-06-10] MEDS: ATORVASTATIN CALCIUM 10MG TABLET PO SCH (22:02)
[2019-06-10] MEDS: FAMOTIDINE 20MG TABLET PO SCH (22:02)
[2019-06-11] MEDS: LEVOTHYROXINE SODIUM 25MCG TABLET PO SCH (06:34)
[2019-06-11 07:45] LABS: EOSINOPHILS % 11.4 % (0.0-5.0); HEMATOCRIT. 30.5 % (36.0-48.0); HEMOGLOBIN. 10.1 g/dL (12.0-16.0); LYMPHOCYTES % 29.8 % (20.0-50.0); MEAN CORPUSCULAR HEMOGLOBIN 32.4 pg (28.0-32.0); MEAN CORPUSCULAR VOLUME 98.3 fL (81.0-99.0); MEAN PLATELET VOLUME 8.3 fl (7.4-10.4); MONOCYTES % 14.1 % (2.0-8.0); NEUTROPHILS % 43.7 % (40.0-76.0); PLATELET 124 x1000/uL (130-400); RED BLOOD CELL COUNT 3.11 mill/uL (4.2-5.4); RED CELL DISTRIBUTION WIDTH 23.7 % (11.6-14.6)
[2019-06-11 08:04] LABS: PHOSPHORUS 5.3 mg/dL (2.5-4.9)
[2019-06-11 08:09] VITALS: BP 113/40
[2019-06-11] MEDS: FOLIC ACID/VITAMIN B COMP W-C TABLET PO SCH (09:00)
[2019-06-11] MEDS: LACTOBACILLUS GG CAPSULE PO SCH (09:00)
[2019-06-11] MEDS: CARVEDILOL 3.125 MG TABLET PO SCH (09:00)
[2019-06-11] MEDS: ERGOCALCIFEROL 50000UNITS CAPSULE PO SCH (10:55)
[2019-06-11] MEDS: FLUOXETINE HCL 10 MG CAPSULE PO SCH (10:55)
[2019-06-11] MEDS: NYSTATIN POWDER 15GM TOP SCH ×3 (10:57→17:00)
[2019-06-11 16:07] LABS: HEPATITIS B SURFACE AB < 3.1 mIU/mL
[2019-06-11 16:18] LABS: HEPATITIS B SURFACE ANTIGEN NEGATIVE
[2019-06-11 16:48] LABS: HEPATITIS A AB IGM NEGATIVE (NEGATIVE)
[2019-06-11 20:00] VITALS: BP 129/41
[2019-06-11] MEDS ORDERED: EPOETIN ALFA 4000UNITS/ML VIAL SUBCUT SCH (21:00)
[2019-06-11] MEDS: ATORVASTATIN CALCIUM 10MG TABLET PO SCH (21:00)
[2019-06-11] MEDS: FAMOTIDINE 20MG TABLET PO SCH (21:00)
[2019-06-12] MEDS ORDERED: LEVETIRACETAM 250MG TABLET PO SCH ×2 (03:53→21:00)
[2019-06-12] MEDS ORDERED: ATORVASTATIN CALCIUM 10MG TABLET PO SCH (04:00)
[2019-06-12] MEDS ORDERED: FAMOTIDINE 20MG TABLET PO SCH (04:00)
[2019-06-12 04:07] LABS: OVA & PARASITE EXAM Final report (.)
[2019-06-12] MEDS: CARVEDILOL 3.125 MG TABLET PO SCH ×2 (04:41→09:45)
[2019-06-12] MEDS: LEVOTHYROXINE SODIUM 25MCG TABLET PO SCH (06:34)
[2019-06-12 08:10] VITALS: BP 145/46
[2019-06-12] MEDS: NYSTATIN POWDER 15GM TOP SCH (09:45)
[2019-06-12] MEDS: FLUOXETINE HCL 10 MG CAPSULE PO SCH (09:45)
[2019-06-12 13:31] VITALS: BP 145/46
== END 2019-06-12 15:30 | disposition home health service (06) | DRG 64 ==
PROVIDERS: ADMIT Physical Medicine & Rehabilitation Spinal Cord Injury Medicine; ATTEND Internal Medicine
PROC: 5A1D70Z Performance of Urinary Filtration, Intermittent, Less than 6 Hours Per Day (ICD-10-PCS; 2019-05-14)
PROC: 5A1D70Z Performance of Urinary Filtration, Intermittent, Less than 6 Hours Per Day (ICD-10-PCS; 2019-05-16)
PROC: 5A1D70Z Performance of Urinary Filtration, Intermittent, Less than 6 Hours Per Day (ICD-10-PCS; 2019-05-18)
PROC: 5A1D70Z Performance of Urinary Filtration, Intermittent, Less than 6 Hours Per Day (ICD-10-PCS; 2019-05-21)
PROC: 5A1D70Z Performance of Urinary Filtration, Intermittent, Less than 6 Hours Per Day (ICD-10-PCS; 2019-05-23)
PROC: 02HV33Z Insertion of Infusion Device into Superior Vena Cava, Percutaneous Approach (ICD-10-PCS; principal; 2019-05-24)
PROC: B548ZZA Ultrasonography of Superior Vena Cava, Guidance (ICD-10-PCS; 2019-05-24)
PROC: 5A1D70Z Performance of Urinary Filtration, Intermittent, Less than 6 Hours Per Day (ICD-10-PCS; 2019-05-26)
PROC: 5A1D70Z Performance of Urinary Filtration, Intermittent, Less than 6 Hours Per Day (ICD-10-PCS; 2019-05-28)
PROC: 5A1D70Z Performance of Urinary Filtration, Intermittent, Less than 6 Hours Per Day (ICD-10-PCS; 2019-05-30)
PROC: 5A1D70Z Performance of Urinary Filtration, Intermittent, Less than 6 Hours Per Day (ICD-10-PCS; 2019-06-01)
PROC: 5A1D70Z Performance of Urinary Filtration, Intermittent, Less than 6 Hours Per Day (ICD-10-PCS; 2019-06-04)
PROC: 5A1D70Z Performance of Urinary Filtration, Intermittent, Less than 6 Hours Per Day (ICD-10-PCS; 2019-06-06)
PROC: 5A1D70Z Performance of Urinary Filtration, Intermittent, Less than 6 Hours Per Day (ICD-10-PCS; 2019-06-08)
PROC: 5A1D70Z Performance of Urinary Filtration, Intermittent, Less than 6 Hours Per Day (ICD-10-PCS; 2019-06-11)
DX: I61.1 Nontraumatic intracerebral hemorrhage in hemisphere, cortical (principal); L89.153 Pressure ulcer of sacral region, stage 3; L89.313 Pressure ulcer of right buttock, stage 3; G82.50 Quadriplegia, unspecified; N18.6 End stage renal disease; E43 Unspecified severe protein-calorie malnutrition; R47.01 Aphasia; A04.71 Enterocolitis due to Clostridium difficile, recurrent; Q61.3 Polycystic kidney, unspecified; Z94.0 Kidney transplant status; Q44.6 Cystic disease of liver; J98.11 Atelectasis; J91.8 Pleural effusion in other conditions classified elsewhere; R13.10 Dysphagia, unspecified; R47.1 Dysarthria and anarthria; R53.81 Other malaise; R26.9 Unspecified abnormalities of gait and mobility; Z99.2 Dependence on renal dialysis; E11.22 Type 2 diabetes mellitus with diabetic chronic kidney disease; E78.00 Pure hypercholesterolemia, unspecified; E78.5 Hyperlipidemia, unspecified; F01.50 Vascular dementia, unspecified severity, without behavioral disturbance, psychotic disturbance, mood disturbance, and anxiety; I27.20 Pulmonary hypertension, unspecified; I61.5 Nontraumatic intracerebral hemorrhage, intraventricular; B37.2 Candidiasis of skin and nail; D63.8 Anemia in other chronic diseases classified elsewhere; D69.6 Thrombocytopenia, unspecified; E28.2 Polycystic ovarian syndrome; E03.9 Hypothyroidism, unspecified; I10 Essential (primary) hypertension; E55.9 Vitamin D deficiency, unspecified; D50.9 Iron deficiency anemia, unspecified; G89.29 Other chronic pain; I49.3 Ventricular premature depolarization; I95.3 Hypotension of hemodialysis; K74.60 Unspecified cirrhosis of liver; I62.00 Nontraumatic subdural hemorrhage, unspecified; F32.9 Major depressive disorder, single episode, unspecified; R94.01 Abnormal electroencephalogram [EEG]; Z66 Do not resuscitate; F06.31 Mood disorder due to known physiological condition with depressive features; M54.5 Low back pain; Z90.710 Acquired absence of both cervix and uterus; Z90.49 Acquired absence of other specified parts of digestive tract; Z88.8 Allergy status to other drugs, medicaments and biological substances; Z79.899 Other long term (current) drug therapy; Z82.71 Family history of polycystic kidney; Z82.49 Family history of ischemic heart disease and other diseases of the circulatory system; Z83.3 Family history of diabetes mellitus; Z86.19 Personal history of other infectious and parasitic diseases; Z86.718 Personal history of other venous thrombosis and embolism; Z86.73 Personal history of transient ischemic attack (TIA), and cerebral infarction without residual deficits; Z87.11 Personal history of peptic ulcer disease; Z87.440 Personal history of urinary (tract) infections; Z87.01 Personal history of pneumonia (recurrent); Z68.21 Body mass index [BMI] 21.0-21.9, adult
CPT/HCPCS: 36415; 70496; 71045; 73060; 76937; 80048; 82140; 82306; 82550; 82607; 82728; 82746; 83540; 83550; 83735; 84100; 84134; 84443; 86705; 86706; 86709; 86803; 87177; 87209; 87340; 92508; 92523; 92610; 93005; 93306; 93970; 97110; 97116; 97163; 97166; 97530; 97535; C1725; J0885; J3370; J3490; J7040; J7050; J8597; Q9967